=== PATIENT | male | born 1970 | race Caucasian/White ===

== ENCOUNTER 2017-10-27 17:40 | Emergency (ER) | payer BC ==
[2017-10-27] MEDS ORDERED: Metoclopramide IV* 5 MG/ML 2 ML VIAL IV ONE (20:25)
[2017-10-27] MEDS ORDERED: Ketorolac INJ* 30 MG/ML 1 ML VIAL IM ONE (20:25)
[2017-10-27] MEDS ORDERED: NS 0.9% 1000 ML* 1,000 ML IV ONE (20:28)
[2017-10-27] MEDS ORDERED: Morphine VIAL* 4 MG/ML VIAL (1 ml vial) IV ONE (20:28)
--- NOTE | 2017-10-27 20:49 | RAD ---
INDICATION: Left flank pain COMPARISON: CT abdomen pelvis April 17, 2011 TECHNIQUE: Noncontrast axial source images were acquired from the level hemidiaphragms to the symphysis pubis as part of CT imaging for renal stone. Lung bases: The lung bases are clear. Liver: The liver is mildly enlarged with findings of hepatic steatosis. Noncontrast imaging shows no evidence of a hepatic mass or ductal dilatation. Gallbladder: There are no calcified gallstones. There is no evidence of wall thickening or pericholecystic fluid.. Spleen: The spleen is normal in size. The noncontrast CT appearance is normal. Pancreas: Noncontrast imaging shows no pancreatic mass or ductal dilitation. Adrenal glands: There is no right adrenal lesion. There is a stable low-density left adrenal lesion measuring approximately 1 cm appearing unchanged and likely representing an adenoma. Kidneys/Bladder: The right kidney is atrophic with areas of scarring. There is a tiny nonobstructive upper pole right renal calculus. Left kidney is hypertrophied. There is mild process central collecting system but the appearance unchanged. There is no evidence of left-sided nephrolithiasis. The left ureter appears normal. The bladder is normal. Adenopathy: There is no evidence of intraperitoneal or retroperitoneal adenopathy. Evaluation is limited without oral contrast. Fluid collections: There are no free or localized fluid collections. Vessels: The aorta and iliac vessels are normal in caliber. There are no significant atherosclerotic changes. The IVC appears normal Pelvic organs: The prostate and seminal vesicles appear normal GI tract: Evaluation of the bowel is limited without oral contrast. The stomach, small bowel, and lower GI tract appear grossly normal. There are no obstructive findings. The appendix is visualized and appears normal. Soft tissues: No soft tissue abnormalities of the extraperitoneal abdomen or pelvis are identified. Osseous structures: There are no acute osseous findings. IMPRESSION: ATROPHIC RIGHT KIDNEY WITH SEVERAL TINY RIGHT RENAL CALCULI. MILD FULLNESS LEFT RENAL COLLECTING SYSTEM, UNCHANGED. NO EVIDENCE OF LEFT-SIDED UROLITHIASIS.
[2017-10-27 20:55] LABS: ABS Basophils 0.1 10^3/ul (0-0.2); ABS Eosinophils 0 10^3/ul (0-0.6); ABS Lymphocytes 2.3 10^3/ul (1.0-4.8); ABS Monocytes 0.9 10^3/ul (0-0.8); ABS Neutrophils 6.5 10^3/ul (1.5-7.7); ABS Nucleated RBC 0 10^3/ul; Eosinophil % 0.3 % (0-6); Hematocrit 43 % (42-52); Lymphocyte % 23.6 % (25-47); Mean Corpuscular HGB Conc 35 g/dl (31-36); Mean Corpuscular Hemoglobin 31 pg (27-31); Mean Corpuscular Volume 88 fL (80-94); Mean Platelet Volume 9.2 um3 (7.4-10.4); Nucleated Red Blood Cells % 0.1; Platelet Count 181 10^3/ul (150-450); Red Blood Count 4.92 10^6/ul (4.00-5.40); Red Cell Distribution Width 13 % (10.5-15); White Blood Count 9.9 10^3/ul (3.5-10.8)
[2017-10-27 21:03] LABS: Urine Appearance Clear; Urine Blood 1+ (Negative); Urine Color Yellow; Urine Ketones Trace (Negative); Urine Protein Negative (Negative); Urine Specific Gravity 1.011 (1.010-1.030); Urine Urobilinogen Negative (Negative)
[2017-10-27 21:18] LABS: EGFR Non-African American 77.1 (>60)
--- NOTE | 2017-10-27 21:46 | ED ---
Michael Urena Tariq, scribed for Linwood Damian MD on 10/27/17 at 2052 . Abdominal Pain/Male - HPI Summary HPI Summary: A 47 y/o male presents to ED c/o LUQ abdominal pain. According to the patient, the pain intermittent and is 6/10 in severity. He describes the pain has burning pain that radiates to his left flank and sharp/shooting into his back. Additionally symptoms include nausea, however that has resolved. Patient denies fever. He noted that he went to previously and found that there was blood and ketones in his urine. No PMHx of kidney stones. - History of Current Complaint Chief Complaint: EDFlankPain Stated Complaint: LT SIDE AND BACK PAIN Time Seen by Provider: 10/27/17 19:56 Hx Obtained From: Patient Onset/Duration: Sudden Onset, Still Present Timing: Intermittent Severity Initially: Moderate Severity Currently: Moderate Pain Intensity: 5 Pain Scale Used: 0-10 Numeric Location: Discrete At: LUQ Radiates: Yes Radiates to: Back, Flank - LEFT Character: Sharp, Burning Aggravating Factor(s): Nothing Alleviating Factor(s): Nothing Associated Signs And Symptoms: Positive: Nausea - Has resolved since onset. Negative: Fever - Allergies/Home Medications Allergies/Adverse Reactions: Allergies Allergy/AdvReac Type Severity Reaction Status Date / Time Penicillins Allergy Unknown Verified 10/27/17 17:49 Reaction Details Home Medications: Home Medications Aspirin 81 mg CHEW TAB* [Aspirin Low Dose TAB*] 81 mg PO DAILY 10/27/17 [ History Confirmed 10/27/17] Metoprolol Succinate XL TAB* [Toprol XL TAB*] 25 mg PO DAILY 10/27/17 [History Confirmed 10/27/17] Rosuvastatin Calcium [Crestor] 40 mg PO DAILY 10/27/17 [History Confirmed ] PMH/Surg Hx/FS Hx/Imm Hx Endocrine/Hematology History: Denies: Hx Diabetes Cardiovascular History: Denies: Hx Hypertension - Surgical History Surgery Procedure, Year, and Place: ANTERIOR CERVICAL SURGERY WITH PLATE Infectious Disease History: No Infectious Disease History: Denies: Traveled Outside the [place] in Last 30 Days - Family History Known Family History: Positive: Cardiac Disease, Diabetes, Other - BREAST AND LUNG CANCER. A-FIB. - Social History Alcohol Use: Occasionally Substance Use Type: Reports: None Smoking Status (MU): Never Smoked Tobacco Review of Systems Negative: Fever Positive: Abdominal Pain - LUQ, Nausea All Other Systems Reviewed And Are Negative: Yes Physical Exam - Summary Physical Exam Summary: VITAL SIGNS: Reviewed. GENERAL: Patient is a well-developed and nourished MALE who is lying comfortable in the stretcher. Patient is not in any acute respiratory distress. HEAD AND FACE: No signs of trauma. No ecchymosis, hematomas or skull depressions. No sinus tenderness. EYES: PERRLA, EOMI x 2, No injected conjunctiva, no nystagmus. EARS: Hearing grossly intact. Ear canals and tympanic membranes are within normal limits. MOUTH: Oropharynx within normal limits. NECK: Supple, trachea is midline, no adenopathy, no JVD, no carotid bruit, no c- spine tenderness, neck with full ROM. CHEST: Symmetric, no tenderness at palpation LUNGS: Clear to auscultation bilaterally. No wheezing or crackles. CVS: Regular rate and rhythm, S1 and S2 present, no murmurs or gallops appreciated. ABDOMEN: Soft, non-tender. No signs of distention. No rebound no guarding, and no masses palpated. Bowel sounds are normal. EXTREMITIES: FROM in all major joints, no edema, no cyanosis or clubbing. NEURO: Alert and oriented x 3. No acute neurological deficits. Speech is normal and follows commands. SKIN: Dry and warm Triage Information Reviewed: Yes Vital Signs On Initial Exam: Initial Vitals Temp Pulse Resp BP Pulse Ox 98.4 F 72 16 148/105 97 10/27/17 17:46 10/27/17 17:46 10/27/17 17:46 10/27/17 17:46 10/27/17 17:46 Vital Signs Reviewed: Yes Diagnostics - Vital Signs Vital Signs Temp Pulse Resp BP Pulse Ox 10/27/17 17:46 98.4 F 72 16 148/105 97 - Laboratory Result Diagrams: 10/27/17 20:46 10/27/17 20:46 Lab Statement: Any lab studies that have been ordered have been reviewed, and results considered in the medical decision making process. - CT CT A/P CT Interpretation Completed By: Radiologist - ATROPHIC RIGHT KIDNEY WITH SEVERAL TINY RIGHT RENAL CALCULI. MILD FULLNESS LEFT RENAL COLLECTING SYSTEM, UNCHANGED. NO EVIDENCE OF LEFT-SIDED UROLITHIASIS. ED PHYSICIAN REVIEWED THIS RADIOLOGY REPORT. Re-Evaluation - Re-Evaluation First Eval Re-Evaluation Time: 21:36 Change: Improved Comment: PATIENT FEELS BETTER. DISCUSSED DISCHARGE. Abdominal Pain Fem Course/Dx - Course Course Of Treatment: A 47 y/o male presents to ED c/o LUQ abdominal pain. According to the patient, the pain intermittent and is 6/10 in severity. He describes the pain has burning pain that radiates to his left flank and sharp/ shooting into his back. Additionally symptoms include nausea, however that has resolved. Patient denies fever. He noted that he went to previously and found that there was blood and ketones in his urine. A A/P CT revealed atrophic right kidney with several tiny renal calculi. Mild fullness left renal collecting system, unchanged. No evidence of left-sided urolithiasis. In the ED course, the patient received Reglan, Toradol, Morphine and IV fluids. Patient will be discharged with a diagnosis of flank pain and microscopic hematuria. Patient is to follow up with Urology in 1-2 days. Pt is agreeable with this plan. - Diagnoses Provider Diagnoses: Microscopic hematuria, Flank pain Discharge - Sign-Out/Discharge Documenting (check all that apply): Discharge/Admit/Transfer - DISCHARGE - Discharge Plan Condition: Stable Disposition: HOME Patient Education Materials: Hematuria (ED), Flank Pain (ED) Referrals: Camacho Vazquez NP [Primary Care Provider] - Zachariah Vasques MD [Medical Doctor] - 2 Days (FOLLOW UP WITH UROLOGY IN 1-2 DAYS. ) Additional Instructions: RETURN TO ED FOR ANY NEW OR WORSENING SYMPTOMS. The documentation as recorded by the Michale macias Tariq accurately reflects the service I personally performed and the decisions made by me, Linwood Damian MD.
[2017-10-27 21:56] VITALS: BP 125/71
== END 2017-10-27 21:55 | disposition home or self-care (01) ==
LOC: ED 17:40
DX: R31.29 Other microscopic hematuria (principal); R10.84 Generalized abdominal pain; R10.12 Left upper quadrant pain; R11.0 Nausea; Z88.0 Allergy status to penicillin
CPT/HCPCS: 36415; 74176; 80053; 81003; 81015; 82150; 83690; 83735; 85025; 86140; 87086; 99285; J1885; J2270; J2765

== ENCOUNTER 2018-01-11 20:59 | Emergency (ER) | payer BC ==
--- NOTE | 2018-01-11 21:17 | ED ---
HPI Chest Pain - HPI Summary HPI Summary: A 47 y/o M presents to ED with c/o palpitations onset [employer]. Pt states he is detoxing from alcohol. Pert PMHx: alcohol abuse, but hasnt drank in 3 years, but has been drinking for past three days. Hes been drinking vodka. His last drink was this AM. Associated sx: ORELLANA, flushed, nausea, tremulous. Denies: vomiting. Denies using recreational drugs. He takes Metoprolol for afib. Two weeks ago, he had an episode and had cardioversion with medication. He states being healthy and runs every day. - History of Current Complaint Chief Complaint: EDDysrhythmPalp Time Seen by Provider: 01/11/18 21:10 Hx Obtained From: Patient, Family/Supervisor [employer] Department - Onset/Duration: Started Days Ago, Still Present Timing: Constant Initial Severity: Mild Current Severity: Mild Pain Intensity: 0 Pain Scale Used: 0-10 Numeric Associated Signs and Symptoms: Positive: Headaches, Nausea, Other: - pos: flushed, tremulous. Negative: Vomiting - Allergy/Home Medications Allergies/Adverse Reactions: Allergies Allergy/AdvReac Type Severity Reaction Status Date / Time Penicillins Allergy Unknown Verified 01/11/18 21:09 Reaction Details PMH/Surg Hx/FS Hx/Imm Hx Previously Healthy: No Endocrine/Hematology History: Denies: Hx Diabetes Cardiovascular History: Denies: Hx Hypertension Psychiatric History: Reports: Hx Anxiety, Hx Substance Abuse - ETOH - Surgical History Surgery Procedure, Year, and Place: ANTERIOR CERVICAL SURGERY WITH PLATE Infectious Disease History: No Infectious Disease History: Denies: Traveled Outside the [place] in Last 30 Days - Family History Known Family History: Positive: Cardiac Disease, Diabetes, Other - BREAST AND LUNG CANCER. A-FIB. - Social History Occupation: Employed Full-time Lives: With Family Alcohol Use: Occasionally Substance Use Type: Reports: None Smoking Status (MU): Never Smoked Tobacco Review of Systems Positive: Other - tremors, flushed Positive: Palpitations Positive: Nausea. Negative: Vomiting Positive: Headache All Other Systems Reviewed And Are Negative: Yes Physical Exam - Summary Physical Exam Summary: Appearance: Well-appearing, Well-nourished, lying in bed comfortably. Minor tremors. Skin: Warm, dry, no obvious rash. No jaundice. Eyes: sclera anicteric, no conjunctival pallor ENT: mucous membranes moist, pharynx appears normal Neck: Supple, nontender Respiratory: Clear to auscultation, no signs of respiratory distress Cardiovascular: Normal S1, S2. No murmurs. Normal distal pulses in tibial and radial bilaterally. Abdomen: Soft, nontender, normal active bowel sounds present. Liver non-tender nor enlarged. Musculoskeletal: Normal, Strength/ROM Intact Neurological: A&Ox3, awake and alert, mentation is normal, speech is fluent and appropriate Psychiatric: affect is normal, does not appear anxious or depressed Triage Information Reviewed: Yes Vital Signs On Initial Exam: Initial Vitals Temp Pulse Resp BP Pulse Ox 98.4 F 82 16 142/74 99 01/11/18 21:07 01/11/18 21:07 01/11/18 21:07 01/11/18 21:07 01/11/18 21:07 Vital Signs Reviewed: Yes Diagnostics - Vital Signs Vital Signs Temp Pulse Resp BP Pulse Ox 01/11/18 21:07 98.4 F 82 16 142/74 99 - Laboratory Result Diagrams: 01/11/18 21:32 01/11/18 21:32 Lab Statement: Any lab studies that have been ordered have been reviewed, and results considered in the medical decision making process. - EKG 2100 EKG Interpretation: Sinus arrhythmia at 76bpm. No STEMI. Chest Pain Course/Dx - Course Course Of Treatment: A 47 y/o M present with c/o ORELLANA, flushed, nausea, tremors, palpitations. He is detoxing from alcohol, has been drinking for 3 days. Pert PMHx: alcohol abuse, 3 years sober prior. EKG showed sinus arrhythmia at 76bpm , no STEMI. ETOH: 263. The patient's alcohol levels consistent with his clinical history of having been sober and only relapsing over the past 3 days. It also is not consistent with his history of having his last drink this morning. I spoke to him and his about my concerns that he may not be entirely truthful about his drinking history, in particular that he may have relapsing longer than just the past 3 days, and drinking more than he is acknowledging to us. I strongly encouraged him to get some assistance with his drinking problem. I did prescribe a very limited supply of Librium to help with his anxiety and potentially with withdrawal symptoms, and cautioned him about mixing that with alcohol. - Diagnoses Provider Diagnoses: Alcohol abuse Discharge - Sign-Out/Discharge Documenting (check all that apply): Patient Departure - Discharge Plan Prescriptions: [email or web address] CAP* [Librium CAP*] 25 mg PO TID PRN #12 cap MDD 3 tabs PRN Reason: Anxiety Patient Education Materials: Abuse of Alcohol (ED), Alcohol Withdrawal (ED) Referrals: Chelsea Larios MD [Primary Care Provider] - - Attestation Statements Document Initiated by Scribe: Yes Documenting Scribe: Daniel Barragan Provider For Whom Scribe is Documenting (Include Credential): Dr. Mitch Alvarado MD Scribe Attestation: I, Daniel Barragan, scribed for Dr. Mitch Alvarado MD on 01/12/18 at 0010.
[2018-01-11] MEDS ORDERED: chlordiazePOXIDE CAP* 25 MG PO ONE (21:20)
[2018-01-11 21:40] LABS: ABS Basophils 0 10^3/ul (0-0.2); ABS Eosinophils 0 10^3/ul (0-0.6); ABS Lymphocytes 1.6 10^3/ul (1.0-4.8); ABS Monocytes 0.4 10^3/ul (0-0.8); ABS Neutrophils 6.3 10^3/ul (1.5-7.7); ABS Nucleated RBC 0 10^3/ul; Eosinophil % 0.3 % (0-6); Hematocrit 48 % (42-52); Hemoglobin 16.3 g/dl (14.0-18.0); Lymphocyte % 19.3 % (25-47); Mean Corpuscular HGB Conc 34 g/dl (31-36); Mean Corpuscular Hemoglobin 31 pg (27-31); Mean Corpuscular Volume 90 fL (80-94); Mean Platelet Volume 8.5 um3 (7.4-10.4); Nucleated Red Blood Cells % 0.2; Platelet Count 194 10^3/ul (150-450); Red Blood Count 5.34 10^6/ul (4.00-5.40); Red Cell Distribution Width 14 % (10.5-15); White Blood Count 8.4 10^3/ul (3.5-10.8)
[2018-01-11 21:54] LABS: EGFR Non-African American 91.2 (>60)
[2018-01-12 00:16] VITALS: BP 140/79
== END 2018-01-12 00:15 | disposition home or self-care (01) ==
LOC: ED 20:59
DX: F10.10 Alcohol abuse, uncomplicated (principal); R00.2 Palpitations; R51 Headache; R11.0 Nausea; R25.1 Tremor, unspecified; Z88.0 Allergy status to penicillin
CPT/HCPCS: 36415; 80053; 80320; 85025; 93005; 99285; A9270-GY; G0480

== ENCOUNTER 2018-05-14 13:39 | Emergency (ER) | payer BC ==
--- NOTE | 2018-05-14 14:10 | ED ---
HPI Cardiac - HPI Summary HPI Summary: Pateint is a 48 y/o M presenting to ED with complaints of chest pounding/ fluttering and chest discomfort since this morning. He is unsure if chest pain is related to GERD or something else. Patient is on metoprolol, Crestor, baby ASA. He took his medications this morning. Hx of hypomagnesemia. Patient notes that he drank "quite a bit of alcohol" last night. In the room, he states, "It feels like I am having withdrawal from the alcohol." Hx of alcohol withdrawal, states that he stopped drinking 2.5 years ago, started drinking again in the fall of this year. Patient denies having consumed alcohol today. He states he had a whole bottle of vodka last night. Patient states that he has not had seizures from withdrawal, states his typical withdrawal Sx are afib and tremors. In room, patient is not tremulous. He does note that he is currently nauseous. PSHx of cervical spinal fusion at C5. On triage, pain is rated 5/10, nothing is noted to aggravate/alleviate Sx. Home medications and allergies are reviewed. BP of 172/107 on triage is noted. Allergies Allergy/AdvReac Type Severity Reaction Status Date / Time Penicillins Allergy Unknown Verified 02/05/18 08:12 Reaction Details Home Medications Aspirin EC TAB* [Ecotrin EC Low Dose 81 MG*] 81 mg PO DAILY 05/14/18 [History Confirmed 05/14/18] Ezetimibe TAB* [Zetia TAB*] 10 mg PO DAILY 05/14/18 [History Confirmed 05/14/18] Omeprazole CAP (NF) [Prilosec CAP* 20 MG] 20 mg PO DAILY 05/14/18 [History Confirmed 05/14/18] Rosuvastatin (NF) [Crestor (NF)] 40 mg PO DAILY 05/14/18 [History Confirmed ] Zolpidem TAB* [Ambien*] 10 mg PO BEDTIME PRN 05/14/18 [History Confirmed ] - History of Current Complaint Chief Complaint: EDDysrhythmPalp Stated Complaint: CHEST PAIN Time Seen by Provider: 05/14/18 13:59 Hx Obtained From: Patient Onset/Duration: Started Hours Ago, Still Present Timing: Constant, Lasting Hours Initial Severity: Moderate Current Severity: Moderate - 5/10 Pain Intensity: 5 Pain Scale Used: 0-10 Numeric - 5/10 Chest Pain Location: Left Anterior Chest Pain Radiates: No Character: Fluttering, Other: - pounding Aggravating Factor(s): Nothing Alleviating Factor(s): Nothing Associated Signs and Symptoms: Positive: Chest Pain, Nausea, Palpitations, Other : - NEGATIVE - TREMORS - Allergy/Home Medications Allergies/Adverse Reactions: Allergies Allergy/AdvReac Type Severity Reaction Status Date / Time Penicillins Allergy Unknown Verified 02/05/18 08:12 Reaction Details Home Medications: Home Medications Aspirin EC TAB* [Ecotrin EC Low Dose 81 MG*] 81 mg PO DAILY 05/14/18 [History Confirmed 05/14/18] Ezetimibe TAB* [Zetia TAB*] 10 mg PO DAILY 05/14/18 [History Confirmed 05/14/18] Omeprazole CAP (NF) [Prilosec CAP* 20 MG] 20 mg PO DAILY 05/14/18 [History Confirmed 05/14/18] Rosuvastatin (NF) [Crestor (NF)] 40 mg PO DAILY 05/14/18 [History Confirmed ] Zolpidem TAB* [Ambien*] 10 mg PO BEDTIME PRN 05/14/18 [History Confirmed ] PMH/Surg Hx/FS Hx/Imm Hx Previously Healthy: No Endocrine/Hematology History: Denies: Hx Diabetes Cardiovascular History: Reports: Hx Atrial Fibrillation, Hx Hypercholesterolemia , Hx Hypertension Denies: Hx Angina Respiratory History: Denies: Hx Asthma Neurological History: Reports: Other Neuro Impairments/Disorders - hx alcohol withdrawal Psychiatric History: Reports: Hx Anxiety, Hx Substance Abuse - ETOH - Surgical History Surgery Procedure, Year, and Place: ANTERIOR CERVICAL SURGERY WITH PLATE Infectious Disease History: No Infectious Disease History: Denies: Traveled Outside the [place] in Last 30 Days - Family History Known Family History: Positive: Cardiac Disease, Diabetes, Other - BREAST AND LUNG CANCER. A-FIB. - Social History Occupation: Employed Full-time Lives: With Family Alcohol Use: hx alcohol abuse, binge drinking last PM, started drinking again fall 2017, after 2.5 yrs abstinence Substance Use Type: Reports: None Smoking Status (MU): Never Smoked Tobacco Review of Systems Positive: Other - NEGATIVE - TREMORS Positive: Palpitations, Chest Pain Respiratory: Negative Positive: Nausea Positive: no symptoms reported Musculoskeletal: Negative Skin: Negative Neurological: Negative Psychological: Normal All Other Systems Reviewed And Are Negative: Yes Physical Exam - Summary Physical Exam Summary: Appearance: Well-appearing, moderate pain distress, well-nourished Skin: Warm, color reflects adequate perfusion, dry Head: Normal Head/Face inspection, atraumatic Eyes: Conjunctiva clear, PERRL EOMI ENT: Normal inspection Neck: Supple, no nodes, no JVD Respiratory: Lungs clear, normal breath sounds, no respiratory distress Cardio: RRR, No murmur, pulses normal, brisk capillary refill Abdomen: Soft, nontender Bowel sounds: Present Musculoskeletal: Strength Intact/ROM intact, no calf tenderness, no edema. Psychological: Normal Neuro: A&O x3, CN II-XII intact, motor function 5/5, sensation intact, cerebellar normal, no tremors Triage Information Reviewed: Yes Vital Signs On Initial Exam: Initial Vitals Temp Pulse Resp BP Pulse Ox 97.2 F 89 16 172/107 96 05/14/18 13:42 05/14/18 13:42 05/14/18 13:42 05/14/18 13:42 05/14/18 13:42 Vital Signs Reviewed: Yes Diagnostics - Vital Signs Vital Signs Temp Pulse Resp BP Pulse Ox 05/14/18 13:42 97.2 F 89 16 172/107 96 - Laboratory Result Diagrams: 05/14/18 13:20 05/14/18 13:20 Lab Statement: Any lab studies that have been ordered have been reviewed, and results considered in the medical decision making process. - Radiology CXR Radiology Interpretation Completed By: Radiologist Summary of Radiographic Findings: IMPRESSION: NO ACTIVE CARDIOPULMONARY DISEASE. THIS REPORT WAS REVIEWED BY ED PHYSICIAN. - EKG 1344 Cardiac Rate: NL - rate of 88 BPM EKG Rhythm: Sinus Rhythm ST Segment: Non-Specific Ectopy: None EKG Comparison: No Significant Change - compared to 01/11/18 Summary of EKG Findings: An EKG at 1344 reveals sinus rhythm with rate of 88 BPM , nml AV/IV CT, nml QTc, and nml axis. No ectopy, non-specific ST. No acute changes. No significant changes compared to 01/11/18. Re-Evaluation - Re-Evaluation First Eval Re-Evaluation Time: 18:04 Change: Unchanged Comment: BP is 162/84. He notes that this is high for him. Patient is on metoprolol, he took medications this morning as usual. He notes some "stomach issues" at left side of abdomen. No discomfort at RUQ. He reports some nausea, he claims that he has not eaten in a couple of days. Patient provided turkey sandwich. PCP is Dr. Larios. Patient requests Librium before discharge, which will be given. No HI, no SI. No Hx of diabetes. Patient states that he went to [facility] yesterday, did the intake over there, will go there in five days once more , has an appointment with them. No other substance usage is reported. Disposition - Course Course Of Treatment: Pateint is a 48 y/o M presenting to ED with complaints of chest pounding/fluttering and chest discomfort since this morning. He is unsure if chest pain is related to GERD or something else. Patient is on metoprolol, Crestor, baby ASA. He took his medications this morning. Hx of hypomagnesemia. Patient notes that he drank "quite a bit of alcohol" last night. In the room, he states, "It feels like I am having withdrawal from the alcohol." Hx of alcohol withdrawal, states that he stopped drinking 2.5 years ago, started drinking again in the fall of 2017. Patient denies having consumed alcohol today. He states he had a whole bottle of vodka last night. Patient states that he has not had seizures from withdrawal, states his typical withdrawl Sx would are afib and tremors. In room, patient is not tremulous. He does note that he is currently nauseous. PSHx of cervical spinal fusion at C5. On physical exam, patient is noted not to be tremulous. CXR IMPRESSION: NO ACTIVE CARDIOPULMONARY DISEASE. An EKG at 1344 reveals sinus rhythm with rate of 88 BPM, nml AV/IV CT, nml QTc, and nml axis. No ectopy, non-specific ST. No acute changes. No significant changes compared to 01/11/18. Labs showed D-dimer < 200 , sodium 132, chloride 98, carbon dioxide 19, anion gap 15, BUN/creatinine 21.1 , magnesium 1.6, lactic acid 0.7, total bilirubin 1.8, AST 40, total creatine kinase 295, CK-MB 3.7. First trop was 0, second was 0.01. Amylase 39, lipase 13 , TSH 3.41, T4 11.13. UA showed 2+ ketones, 1+ blood, present squamous epith cells. Tox screen negative.Pt does not recall being told that he has Gilbert's syndrome. Denies RUQ pain entirely, despite recent binge alcohol and elevated bilirubin, so will not pursue gallbladder work up at this time. 1804 - BP is 162/84. He notes that this is high for him. Patient is on metoprolol, he took medications this morning as usual. He notes some "stomach issues" at left side of abdomen. No discomfort at RUQ. He reports some nausea, he claims that he has not eaten in a couple of days. Patient provided turkey sandwich. PCP is Dr. Larios. Patient requests Librium before discharge, which will be given. No HI, no SI. No Hx of diabetes. Patient states that he went to [facility] yesterday, did the intake over there, will go there in five days once more for the appointment he set up. No other substance usage is reported. Patient is agreeable with discharge to home with librium prescription. During ED course, patient received fluids, Lopressor 25 mg PO ED ONCE, Magnesium sulfate 1 Gm IV, 1 gm in 100 mls @ 200 mls/hr IV ED ONCE ONCE. - Differential Dx - Cardiopulmonary Differential Diagnoses - Cardiopulmonary: Atrial Fibrillation, Bronchitis, CAD, Cardiomyopathy, Chest Wall Pain, Lower Resp Infection, Myocardial Infarction, Other - alcohol withdrawal. - Diagnoses Provider Diagnoses: Palpitations, Hypertension, poor control, Elevated bilirubin, Alcohol withdrawal Discharge - Sign-Out/Discharge Documenting (check all that apply): Patient Departure - discharge - Discharge Plan Condition: Stable Disposition: HOME Prescriptions: chlordiazePOXIDE CAP* [Librium CAP*] 25 mg PO Q6H PRN #20 cap MDD 4 PRN Reason: Withdrawal - Alcohol Patient Education Materials: Heart Palpitations (ED), Chronic Hypertension (ED) , Alcohol Withdrawal (ED) Referrals: Chelsea Larios MD [Primary Care Provider] - 2 Days Additional Instructions: Your bilirubin was elevated today at 1.8, and your AST was 40 (normal is 39). You had no right upper quadrant pain or gallbladder type symptoms, so we did not do any further evaluation of your liver function tests at this time. Dr. Aranda agrees that you should hold your Crestor until your liver function tests are re-checked. We gave one dose of metoprolol tartrate 25mg at 6:15pm for elevated blood pressure. We are prescribing librium 25mg every six hours as needed for alcohol withdrawal symptoms, or anxiety. Have definite follow up with Dr. Larios in 2 days. Keep your appointment with [facility] on 05/19/18. Avoid alcohol. We had two troponin levels that were normal so we do not feel the palpitations were due to any serious cardiac cause today. Return to the ER if you have any new or worsening symptoms. - Billing Disposition and Condition Condition: STABLE Disposition: Home - Attestation Statements Document Initiated by Jesica: Yes Documenting Scribe: DONNELL CIFUENTES Provider For Whom Jesica is Documenting (Include Credential): VICTORINA ARANDA MD Scribe Attestation: DONNELL Urena, scribed for VICTORINA ARANDA MD on 05/19/18 at 0010. Scribe Documentation Reviewed: Yes Provider Attestation: The documentation as recorded by the DONNELL macias accurately reflects the service I personally performed and the decisions made by me, VICTORINA ARANDA MD Status of Scribe Document: Viewed
[2018-05-14 14:24] LABS: ABS Basophils 0 10^3/ul (0-0.2); ABS Eosinophils 0 10^3/ul (0-0.6); ABS Lymphocytes 1.3 10^3/ul (1.0-4.8); ABS Monocytes 0.7 10^3/ul (0-0.8); ABS Neutrophils 7.2 10^3/ul (1.5-7.7); ABS Nucleated RBC 0 10^3/ul; Eosinophil % 0 %; Hematocrit 43 % (42-52); Hemoglobin 14.9 g/dl (14.0-18.0); Lymphocyte % 14.4 %; Mean Corpuscular HGB Conc 35 g/dl (31-36); Mean Corpuscular Hemoglobin 31 pg (27-31); Mean Corpuscular Volume 89 fL (80-94); Mean Platelet Volume 8.2 fL (7.4-10.4); Nucleated Red Blood Cells % 0.1; Platelet Count 196 10^3/ul (150-450); Red Cell Distribution Width 14 % (10.5-15); White Blood Count 9.3 10^3/ul (3.5-10.8)
[2018-05-14 14:33] LABS: Activated Partial Thrombo Time 29.2 seconds (26.0-36.3); INR 0.99 (0.77-1.02)
[2018-05-14 14:44] LABS: ALT 38 U/L (7-52); AST 40 U/L (13-39); Albumin 4.4 g/dL (3.2-5.2); Albumin/Globulin Ratio 1.3 (1-3); Alkaline Phosphatase 61 U/L (34-104); Anion Gap 15 mmol/L (2-11); BUN/Creatinine Ratio 21.1 (8-20); Blood Urea Nitrogen 20 mg/dL (6-24); CO2 Carbon Dioxide 19 mmol/L (22-32); Calcium 9.1 mg/dL (8.6-10.3); Chloride 98 mmol/L (101-111); Creatine Kinase 295 U/L (10-223); EGFR Non-African American 84.3 (>60); Globulin 3.3 g/dL (2-4); Glucose 88 mg/dL (70-100); Magnesium 1.6 mg/dL (1.9-2.7); Potassium 3.8 mmol/L (3.5-5.0); Sodium 132 mmol/L (135-145); Total Protein 7.7 g/dL (6.4-8.9)
[2018-05-14 14:48] LABS: CKMB ng/mL 3.7 ng/mL (0.6-6.3)
[2018-05-14] MEDS ORDERED: Magnesium Sulfate 1 GM IV* 1 GM/100 ML BAG IV ONE (14:48)
[2018-05-14] MEDS ORDERED: NS 0.9% 1000 ML* 2,000 ML IV SCH (15:00)
[2018-05-14 15:14] LABS: Amylase 39 U/L (29-103)
[2018-05-14] MEDS ORDERED: NS 0.9% 1000 ML* 2,000 ML IV ONE (16:00)
[2018-05-14 16:02] LABS: Alcohol < 10 mg/dL (<10)
[2018-05-14 16:04] LABS: T4, Total 11.13 g/dL (6.09-12.23)
[2018-05-14 16:08] LABS: TSH (Thyroid Stimulating Horm) 3.41 mcIU/mL (0.34-5.60)
[2018-05-14] MEDS ORDERED: chlordiazePOXIDE CAP* 25 MG PO ONE (18:08)
[2018-05-14] MEDS ORDERED: Metoprolol Tartrate TAB* 25 MG PO ONE (18:10)
[2018-05-14 18:46] LABS: Urine Appearance Clear; Urine Bacteria Absent (Absent); Urine Bilirubin Negative (Negative); Urine Blood 1+ (Negative); Urine Color Yellow; Urine Glucose Negative (Negative); Urine Ketones 2+ (Negative); Urine Nitrite Negative (Negative); Urine Protein Negative (Negative); Urine Red Blood Cell Trace(0-2/hpf) (Absent); Urine Specific Gravity 1.014 (1.010-1.030); Urine Squamous Epithelial Cell Present (Absent); Urine Urobilinogen Negative (Negative); Urine White Blood Cell Trace(0-5/hpf) (Absent)
[2018-05-14 18:47] LABS: Barbiturates Urine Screen None Detected (None Detect); Benzodiazepine Urine Screen None Detected (None Detect); Urine Cannabinoids Screen None Detected (None Detect)
[2018-05-14 19:18] VITALS: BP 159/87
== END 2018-05-14 19:26 | disposition home or self-care (01) ==
LOC: ED 13:39
DX: R00.2 Palpitations (principal); I10 Essential (primary) hypertension; E80.7 Disorder of bilirubin metabolism, unspecified; F10.239 Alcohol dependence with withdrawal, unspecified; Z88.0 Allergy status to penicillin; Z79.82 Long term (current) use of aspirin
CPT/HCPCS: 36415; 71045; 80053; 80307; 80320; 81003; 81015; 82150; 82550; 82553; 83605; 83690; 83735; 83880; 84436; 84443; 84484; 85025; 85379; 85610; 85730; 87086; 93005; 96361; 96374; 96375; 99282; A9270-GY; G0480; J3475

== ENCOUNTER 2019-01-11 09:04 | Emergency (ER) | payer BC ==
--- OUTSIDE RECORDS SUMMARY | 2019-01-11 09:17 | XMS REPORT | Continuity of Care Document ---
:1970 External Reference #:[id number] Author Name Alena Marianne Care Team Providers Name Role Phone Chelsea Larios MD Primary Care Physician Unavailable Payers Date Identification Numbers Payment Provider Subscriber Policy Number: [id number] [facility] [facility] Sandra Cheema PayID: [id number] [address] [place] [address] Problems Active Problems Provider Date Paroxysmal atrial fibrillation Camacho Vazquez NP Onset: 01/28/2017 Hyperlipidemia Camacho Vazquez NP Onset: 01/28/2017 Family History Date Family Member(s) Observation Comments General Cancer General Heart Disease : (age 68 Father due to Stroke Years) Father due to Arrhythmia () Onset: (age 78 Mother Lung Cancer smoker, alive 10/2017 Years) Mother Aortic Aneurysm abdominal rupture and repair Siblings 2 Social History Type Date Description Comments Sex Unknown Marital Status Occupation [employer] Use Denies alcohol use Had problem with alcohol, stopped drinking in 2015.In-patient Detox in 2015. Relapse in 2017. CARS in 2018 Tobacco Use Start: Unknown Patient has never smoked Recreational Drug Use Never Used Drugs Smoking Status Reviewed: 11/26/18 Patient has never smoked Exercise Type/Frequency Exercises regularly Allergies, Adverse Reactions, Alerts Active Allergies Reaction Severity Comments Date Penicillin 01/23/2017 Medications Active Medications SIG Qnty Indications Ordering Provider Date Zetia 1 by mouth every 90tabs Jamarcus Mcguire 02/02/2018 10mg Tablets day Renae Paige Magnesium [place] Chelsea Larios, 12/18/2017 Renae Metoprolol Succinate take 1 tablet 90tabs I48.0 Chelsea Larios, 2017 ER daily Renae 25mg Tablets ER 24HR Crestor take 1 tablet 90tabs Jamarcus Mcguire 06/09/2017 40mg Tablets daily Renae Paige Ambien 1 tab by mouth 30tabs [facility] Ric 02/21/2017 10mg Tablets daily as needed Renae Aspirin 1 by mouth every Unknown 81mg Tablets DR dos santos Effexor XR 1 by mouth every Unknown 75mg Caps ER day 24HR History Medications Azithromycin 2 tabs by mouth on 6tabs . [facility] 04/06/2018 - 250mg day 1; 1 tab by Renae Larios 04/10/2018 Tablets mouth every day on days 2-5 Guaifenesin-Codeine 5-10 milliliters 120ml . [facility] 04/06/2018 - every 6 hours as Renae Larios 04/13/2018 100-10mg/5ML needed Solution Magnesium Sulfate 2 grams iv 2gm Jamarcus Mcguire 02/03/2018 - Renae Paige 10/27/2018 2GM/50ML Solution Slow-Mag 1 PO qd (not 30tabs [facility] 02/02/2018 - 71.5-119mg taking) Renae Larios 10/27/2018 Tablets Magnesium Oxide 1 PO qd Pt states [facility] 11/02/2017 - 250mg is not currently Renae Larios 12/18/2017 Tablets taking, instead using magnesium spray. Omeprazole 1 by mouth every 30caps K21.9 [facility] 10/30/2017 - 40mg day (not taking) Renae Larios 10/27/2018 Capsules Zolpidem Tartrate take 1 tablet by 30tabs Camacho Vazquez NP 01/23/2017 - mouth at bedtime 01/23/2017 10mg Tablets Metoprolol Succinate 1 by mouth every 90tabs I48.0 Camacho Vazquez NP - ER day 06/09/2017 25mg Tablets ER 24HR Crestor 1 by mouth every 90tabs Camacho Vazquez NP - 40mg Tablets day 06/09/2017 Ambien as needed Unknown - 02/21/2017 Benzonatate take one or two Unknown - 100mg capsules every 8 04/21/2018 Capsules hours as needed for cough. Proair HFA inhale 1 to 2 Unknown - puffs by mouth 10/27/2018 108(90Base) mcg/Act every 4 hours if Aerosol needed for wheezing Immunizations CPT Code Status Date Vaccine Lot # [id number] Given 01/23/2017 Influenza Virus Vaccine, Quadrivalent, Split, [id number] Preservative Free Vital Signs Date Vital Result Comment 11/26/2018 8:58am Height 71 inches 5'11" Weight 266.25 lb Heart Rate 81 /min BP Systolic Sitting 118 mmHg BP Diastolic Sitting 80 mmHg Respiratory Rate 16 /min BMI (Body Mass Index) 37.1 kg/m2 10/28/2018 7:36am Height 71 inches 5'11" Weight 260.00 lb Heart Rate 64 /min BP Systolic Sitting 110 mmHg Lue large cuff BP Diastolic Sitting 76 mmHg Lue large cuff Respiratory Rate 12 /min O2 % BldC Oximetry 97 % BMI (Body Mass Index) 36.3 kg/m2 Neck Circumference in inches 17.25 09/18/2018 4:02pm Height 71 inches 5'11" Weight 261.00 lb Heart Rate 72 /min BP Systolic Sitting 143 mmHg BP Diastolic Sitting 98 mmHg Body Temperature 97.5 F O2 % BldC Oximetry 96 % BMI (Body Mass Index) 36.4 kg/m2 07/02/2018 7:42am Height 71 inches 5'11" Weight 267.00 lb Heart Rate 75 /min BP Systolic 118 mmHg BP Diastolic 79 mmHg Body Temperature 96.9 F O2 % BldC Oximetry 96 % BMI (Body Mass Index) 37.2 kg/m2 04/06/2018 4:06pm Height 71 inches 5'11" Weight 250.00 lb Heart Rate 75 /min BP Systolic Sitting 110 mmHg BP Diastolic Sitting 80 mmHg Body Temperature 98.0 F O2 % BldC Oximetry 97 % BMI (Body Mass Index) 34.9 kg/m2 12/18/2017 8:39am Height 71 inches 5'11" Weight 255.00 lb Heart Rate 77 /min BP Systolic 109 mmHg BP Diastolic 71 mmHg Body Temperature 97.0 F O2 % BldC Oximetry 97 % BMI (Body Mass Index) 35.6 kg/m2 11/17/2017 9:23am Height 71 inches 5'11" Weight 259.25 lb w/shoes Heart Rate 74 /min BP Systolic Sitting 108 mmHg Lue lg cuff BP Diastolic Sitting 70 mmHg Lue lg cuff BMI (Body Mass Index) 36.2 kg/m2 10/30/2017 8:33am Height 71 inches 5'11" Weight 262.00 lb Heart Rate 66 /min BP Systolic Sitting 134 mmHg BP Diastolic Sitting 93 mmHg O2 % BldC Oximetry 97 % BMI (Body Mass Index) 36.5 kg/m2 01/24/2017 2:54pm Height 71 inches 5'11" Weight 262.00 lb BP Systolic 122 mmHg BP Diastolic 81 mmHg Respiratory Rate 16 /min Body Temperature 97.7 F Pain Level 6 BMI (Body Mass Index) 36.5 kg/m2 01/23/2017 10:49am Height 71 inches 5'11" Weight 262.00 lb Heart Rate 68 /min BP Systolic Sitting 114 mmHg BP Diastolic Sitting 78 mmHg O2 % BldC Oximetry 98 % BMI (Body Mass Index) 36.5 kg/m2 Results Test Date Facility Test Result H/L Range Note CBC Auto 09/18/2018 [facility] White Blood 4.9 10^3/uL Normal 3.5-10.[address] [place] [address] [phone] Red Blood Count 4.58 10^6/uL Normal 4.18-5.48 Hemoglobin 14.4 g/dL Normal 14.0-18.0 Hematocrit 42 % Normal 42-52 Mean Corpuscular Volume 92 fL Normal 80-94 Mean Corpuscular Hemoglobin 31 pg Normal 27-31 Mean Corpuscular HGB Conc 34 g/dL Normal 31-36 Red Cell Distribution Width 14 % Normal 10.5-15 Platelet Count 168 10^3/uL Normal 150-450 Mean Platelet Volume 9.5 fL Normal 7.4-10.4 Abs Neutrophils 3.3 10^3/uL Normal 1.5-7.7 Abs Lymphocytes 1.2 10^3/uL Normal 1.0-4.8 Abs Monocytes 0.4 10^3/uL Normal 0-0.8 Abs Eosinophils 0.1 10^3/uL Normal 0-0.6 Abs Basophils 0.0 10^3/uL Normal 0-0.2 Abs Nucleated RBC 0.0 10^3/uL Granulocyte % 66.2 % Lymphocyte % 23.4 % Monocyte % 8.8 % Eosinophil % 1.2 % Basophil % 0.4 % Nucleated Red Blood Cells % 0.7 Comp Metabolic 09/18/2018 [facility] Sodium 139 mmol/L Normal 135-[address] [place] [address] [phone] Potassium 3.6 mmol/L Normal 3.5-5.0 Chloride 107 mmol/L Normal 101-111 Co2 Carbon Dioxide 26 mmol/L Normal 22-32 Anion Gap 6 mmol/L Normal 2-11 Glucose 112 mg/dL High 70-100 Blood Urea Nitrogen 16 mg/dL Normal 6-24 Creatinine 1.04 mg/dL Normal 0.67-1.17 BUN/Creatinine Ratio 15.4 Normal 8-20 Calcium 9.1 mg/dL Normal 8.6-10.3 Total Protein 7.2 g/dL Normal 6.4-8.9 Albumin 4.4 g/dL Normal 3.2-5.2 Globulin 2.8 g/dL Normal 2-4 Albumin/Globulin Ratio 1.6 Normal 1-3 Total Bilirubin 0.80 mg/dL Normal 0.2-1.0 Alkaline Phosphatase 54 U/L Normal 34-104 Alt 46 U/L Normal 7-52 Ast 35 U/L Normal 13-39 Egfr Non- 75.9 >60 Egfr 91.8 >60 1 Laboratory 09/18/2018 [facility] Lipase 43 U/L Normal 11.0- 82.[address] [place], [place] [id number] [phone] Urine Drug 05/14/2018 [facility] Amphetamine Ur None None Detect SCR ED & Pain [address] [place] [address] [phone] Barbiturates Urine Screen None Detected None Detect Benzodiazepine Urine Screen None Detected None Detect Urine Cannabinoids Screen None Detected None Detect Urine Cocaine Screen None Detected None Detect Urine Opiates Screen None Detected None Detect Urine Phencyclidine Screen None Detected None Detect 2 Urine Culture And 05/14/2018 [facility] Urine Culture SEE RESULT [address] [place] [address] [phone] Urinalysis Profile 05/14/2018 [facility] Urine Color Yellow [address] [place] [address] [phone] Urine Appearance Clear Urine Specific [place] 1.014 Normal 1.010-1.030 Urine pH 5.0 Normal 5-9 Urine Urobilinogen Negative Negative Urine Ketones 2+ Abnormal Negative Urine Protein Negative Negative Urine Leukocytes Negative Negative Urine Blood 1+ Abnormal Negative Urine Nitrite Negative Negative Urine Bilirubin Negative Negative Urine Glucose Negative Negative Urine White Blood Cell Trace(0-5/hpf) Absent Urine Red Blood Cell Trace(0-2/hpf) Absent Urine Bacteria Absent Absent Urine Squamous Epithelial Cell Present Abnormal Absent Laboratory test 05/14/2018 [facility] Amylase 39 U/L Normal 29 -103 [place] [address] [phone] Lipase 13 U/L Normal 11.0-82.0 Alcohol < 10 mg/dL Normal <10 Thyroxine 11.13 ?g/dL Normal 6.09-12.23 TSH (Thyroid Stim Horm) 3.41 mcIU/mL Normal 0.34-5.60 CKMB 05/14/2018 [facility] CKMB ng/mL 3.7 ng/mL Normal 0.6- 6.3 [place] [address] [phone] Laboratory test 05/14/2018 [facility] Troponin-I 0.01 ng/mL < 0.04 4 finding (TnI) [place] [address] [phone] Inr/Protime 05/14/2018 [facility] Inr 0.99 Normal 0.77-1.02 [place], [place] [id number] [phone] Laboratory test 05/14/2018 [facility] Partial 29.2 Normal 26.0 -36.3 [place] [address] Time PTT [phone] D Dimer Quantitative < 200 ng/mL Normal Less Than 230 5 Laboratory test 05/14/2018 [facility] Magnesium 1.6 mg/dL Low 1.9-2.7 finding [place], [place] [id number] [phone] Creatine Kinase(CK) 295 U/L High 10-223 Troponin-I (TnI) 0.00 ng/mL <0.04 6 Comp Metabolic Panel 05/14/2018 [facility] Sodium 132 mmol/L Low 135-145 [place] [address] [phone] Potassium 3.8 mmol/L Normal 3.5-5.0 Chloride 98 mmol/L Low 101-111 Co2 Carbon Dioxide 19 mmol/L Low 22-32 Anion Gap 15 mmol/L High 2-11 Glucose 88 mg/dL Normal 70-100 Blood Urea Nitrogen 20 mg/dL Normal 6-24 Creatinine 0.95 mg/dL Normal 0.67-1.17 BUN/Creatinine Ratio 21.1 High 8-20 Calcium 9.1 mg/dL Normal 8.6-10.3 Total Protein 7.7 g/dL Normal 6.4-8.9 Albumin 4.4 g/dL Normal 3.2-5.2 Globulin 3.3 g/dL Normal 2-4 Albumin/Globulin Ratio 1.3 Normal 1-3 Total Bilirubin 1.80 mg/dL High 0.2-1.0 Alkaline Phosphatase 61 U/L Normal 34-104 Alt 38 U/L Normal 7-52 Ast 40 U/L High 13-39 Egfr Non- 84.3 >60 Egfr 102.0 >60 7 CBC Auto 05/14/2018 [facility] White Blood 9.3 10^3/uL Normal 3.5-10.[address] [place] [address] [phone] Red Blood Count 4.80 10^6/uL Normal 4.00-5.40 Hemoglobin 14.9 g/dL Normal 14.0-18.0 Hematocrit 43 % Normal 42-52 Mean Corpuscular Volume 89 fL Normal 80-94 Mean Corpuscular Hemoglobin 31 pg Normal 27-31 Mean Corpuscular HGB Conc 35 g/dL Normal 31-36 Red Cell Distribution Width 14 % Normal 10.5-15 Platelet Count 196 10^3/uL Normal 150-450 Mean Platelet Volume 8.2 fL Normal 7.4-10.4 Abs Neutrophils 7.2 10^3/uL Normal 1.5-7.7 Abs Lymphocytes 1.3 10^3/uL Normal 1.0-4.8 Abs Monocytes 0.7 10^3/uL Normal 0-0.8 Abs Eosinophils 0 10^3/uL Normal 0-0.6 Abs Basophils 0 10^3/uL Normal 0-0.2 Abs Nucleated RBC 0 10^3/uL Granulocyte % 77.7 % Lymphocyte % 14.4 % Monocyte % 7.6 % Eosinophil % 0 % Basophil % 0.3 % Nucleated Red Blood Cells % 0.1 Laboratory test 05/14/2018 [facility] Lactic Acid 0.7 mmol/L Normal 0.5-2.[address] [place] [address] [phone] B-Type Natriuretic Peptide BNP 14 pg/mL <=100 Laboratory test 01/30/2018 [facility] Magnesium 1.7 mg/dL Low 1.9-2.[address] [place] [address] [phone] Lipid Panel - 01/30/2018 [facility] Creatine 82 U/L Normal 10- [address] Kinase(CK) [place] [address] [phone] Comp Metabolic 01/30/2018 [facility] Sodium 138 Normal 135- [address] mmol/[place] [address] [phone] Potassium 4.4 mmol/L Normal 3.5-5.0 Chloride 103 mmol/L Normal 101-111 Co2 Carbon Dioxide 25 mmol/L Normal 22-32 Anion Gap 10 mmol/L Normal 2-11 Glucose 101 mg/dL High 70-100 Blood Urea Nitrogen 18 mg/dL Normal 6-24 Creatinine 1.15 mg/dL Normal 0.67-1.17 BUN/Creatinine Ratio 15.7 Normal 8-20 Calcium 10.0 mg/dL Normal 8.6-10.3 Total Protein 7.2 g/dL Normal 6.4-8.9 Albumin 4.6 g/dL Normal 3.2-5.2 Globulin 2.6 g/dL Normal 2-4 Albumin/Globulin Ratio 1.8 Normal 1-3 Total Bilirubin 0.90 mg/dL Normal 0.2-1.0 Alkaline Phosphatase 68 U/L Normal 34-104 Alt 41 U/L Normal 7-52 Ast 30 U/L Normal 13-39 Egfr Non- 67.9 >60 Egfr 82.1 >60 9 Lipid Profile 01/30/2018 [facility] Triglycerides 69 mg/dL 10 (Trig/Chol/HDL) [address] [place] [address] [phone] Cholesterol 202 mg/dL 11 HDL Cholesterol 51.9 mg/dL 12 LDL Cholesterol 136 mg/dL 13 CBC Auto 01/11/2018 [facility] White Blood 8.4 10^3/uL Normal 3.5-10.[address] [place] [address] [phone] Red Blood Count 5.34 10^6/uL Normal 4.00-5.40 Hemoglobin 16.3 g/dL Normal 14.0-18.0 Hematocrit 48 % Normal 42-52 Mean Corpuscular Volume 90 fL Normal 80-94 Mean Corpuscular Hemoglobin 31 pg Normal 27-31 Mean Corpuscular HGB Conc 34 g/dL Normal 31-36 Red Cell Distribution Width 14 % Normal 10.5-15 Platelet Count 194 10^3/uL Normal 150-450 Mean Platelet Volume 8.5 um3 Normal 7.4-10.4 Abs Neutrophils 6.3 10^3/uL Normal 1.5-7.7 Abs Lymphocytes 1.6 10^3/uL Normal 1.0-4.8 Abs Monocytes 0.4 10^3/uL Normal 0-0.8 Abs Eosinophils 0 10^3/uL Normal 0-0.6 Abs Basophils 0 10^3/uL Normal 0-0.2 Abs Nucleated RBC 0 10^3/uL Granulocyte % 75.4 % Normal 38-83 Lymphocyte % 19.3 % Low 25-47 Monocyte % 4.8 % Normal 0-7 Eosinophil % 0.3 % Normal 0-6 Basophil % 0.2 % Normal 0-2 Nucleated Red Blood Cells % 0.2 Comp Metabolic 01/11/2018 [facility] Sodium 141 mmol/L Normal 135-[address] [place] [address] [phone] Potassium 3.9 mmol/L Normal 3.5-5.0 Chloride 102 mmol/L Normal 101-111 Co2 Carbon Dioxide 20 mmol/L Low 22-32 Anion Gap 19 mmol/L High 2-11 Glucose 76 mg/dL Normal 70-100 Blood Urea Nitrogen 16 mg/dL Normal 6-24 Creatinine 0.89 mg/dL Normal 0.67-1.17 BUN/Creatinine Ratio 18.0 Normal 8-20 Calcium 9.1 mg/dL Normal 8.6-10.3 Total Protein 7.7 g/dL Normal 6.4-8.9 Albumin 4.6 g/dL Normal 3.2-5.2 Globulin 3.1 g/dL Normal 2-4 Albumin/Globulin Ratio 1.5 Normal 1-3 Total Bilirubin 0.70 mg/dL Normal 0.2-1.0 Alkaline Phosphatase 72 U/L Normal 34-104 Alt 65 U/L High 7-52 Ast 58 U/L High 13-39 Egfr Non- 91.2 >60 Egfr 110.4 >60 14 Laboratory test 01/11/2018 [facility] Alcohol 263 mg/dL High < [address] [place] [address] [phone] Laboratory test 10/31/2017 [facility] Magnesium 1.7 mg/dL Low 1.9-2.[address] [place] [address] [phone] TSH (Thyroid Stim Horm) 2.24 mcIU/mL Normal 0.34-5.60 Order 10/30/2017 [facility] In-House Holter Monitor <pending> CBC Auto Diff 10/27/2017 [facility] White Blood 9.9 10^3/uL Normal 3.5-10.[address] [place] [address] [phone] Red Blood Count 4.92 10^6/uL Normal 4.00-5.40 Hemoglobin 15.0 g/dL Normal 14.0-18.0 Hematocrit 43 % Normal 42-52 Mean Corpuscular Volume 88 fL Normal 80-94 Mean Corpuscular Hemoglobin 31 pg Normal 27-31 Mean Corpuscular HGB Conc 35 g/dL Normal 31-36 Red Cell Distribution Width 13 % Normal 10.5-15 Platelet Count 181 10^3/uL Normal 150-450 Mean Platelet Volume 9.2 um3 Normal 7.4-10.4 Abs Neutrophils 6.5 10^3/uL Normal 1.5-7.7 Abs Lymphocytes 2.3 10^3/uL Normal 1.0-4.8 Abs Monocytes 0.9 10^3/uL High 0-0.8 Abs Eosinophils 0 10^3/uL Normal 0-0.6 Abs Basophils 0.1 10^3/uL Normal 0-0.2 Abs Nucleated RBC 0 10^3/uL Granulocyte % 65.9 % Normal 38-83 Lymphocyte % 23.6 % Low 25-47 Monocyte % 9.5 % High 0-7 Eosinophil % 0.3 % Normal 0-6 Basophil % 0.7 % Normal 0-2 Nucleated Red Blood Cells % 0.1 Urinalysis Profile 10/27/2017 [facility] Urine Color Yellow [address] [place] [address] [phone] Urine Appearance Clear Urine Specific [place] 1.011 Normal 1.010-1.030 Urine pH 5.0 Normal 5-9 Urine Urobilinogen Negative Negative Urine Ketones Trace Abnormal Negative Urine Protein Negative Negative Urine Leukocytes Negative Negative Urine Blood 1+ Abnormal Negative Urine Nitrite Negative Negative Urine Bilirubin Negative Negative Urine Glucose Negative Negative Urine White Blood Cell Trace(0-5/hpf) Absent Urine Red Blood Cell Absent Absent Urine Bacteria 1+ Abnormal Absent Urine Squamous Epithelial Cell Present Abnormal Absent Comp Metabolic Panel 10/27/2017 [facility] Sodium 134 mmol/L Low 135-145 [address] [place] [address] [phone] Potassium 3.5 mmol/L Normal 3.5-5.0 Chloride 95 mmol/L Low 101-111 Co2 Carbon Dioxide 28 mmol/L Normal 22-32 Anion Gap 11 mmol/L Normal 2-11 Glucose 94 mg/dL Normal 70-100 Blood Urea Nitrogen 21 mg/dL Normal 6-24 Creatinine 1.03 mg/dL Normal 0.67-1.17 BUN/Creatinine Ratio 20.4 High 8-20 Calcium 9.3 mg/dL Normal 8.6-10.3 Total Protein 7.7 g/dL Normal 6.4-8.9 Albumin 4.4 g/dL Normal 3.2-5.2 Globulin 3.3 g/dL Normal 2-4 Albumin/Globulin Ratio 1.3 Normal 1-3 Total Bilirubin 1.30 mg/dL High 0.2-1.0 Alkaline Phosphatase 75 U/L Normal 34-104 Alt 25 U/L Normal 7-52 Ast 27 U/L Normal 13-39 Egfr Non- 77.1 >60 Egfr 93.3 >60 15 Laboratory test 10/27/2017 [facility] Magnesium 1.4 mg/dL Low 1.9-2.7 finding [address] [place] [address] [phone] Amylase 35 U/L Normal 29-103 Lipase 14 U/L Normal 11.0-82.0 C Reactive Protein 1.00 mg/L Normal <8.01 Urine Culture And 10/27/2017 [facility] Urine SEE RESULT [address] [place] [place] [address] [phone] Comp Metabolic 09/22/2017 [facility] Sodium 138 mmol/L Low 139 -[address] [place] [address] [phone] Potassium 4.4 mmol/L Normal 3.5-5.0 Chloride 104 mmol/L Normal 101-111 Co2 Carbon Dioxide 26 mmol/L Normal 22-32 Anion Gap 8 mmol/L Normal 2-11 Glucose 97 mg/dL Normal 70-100 Blood Urea Nitrogen 18 mg/dL Normal 6-24 Creatinine 1.02 mg/dL Normal 0.67-1.17 BUN/Creatinine Ratio 17.6 Normal 8-20 Calcium 8.9 mg/dL Normal 8.6-10.3 Total Protein 6.9 g/dL Normal 6.4-8.9 Albumin 4.2 g/dL Normal 3.2-5.2 Globulin 2.7 g/dL Normal 2-4 Albumin/Globulin Ratio 1.6 Normal 1-3 Total Bilirubin 0.80 mg/dL Normal 0.2-1.0 Alkaline Phosphatase 61 U/L Normal 34-104 Alt 20 U/L Normal 7-52 Ast 19 U/L Normal 13-39 Egfr Non- 78.0 >60 Egfr 100.2 >60 17 Lipid Profile 09/22/2017 [facility] Triglycerides 107 mg/dL 18 (Trig/Chol/HDL) [address] [place] [address] [phone] Cholesterol 196 mg/dL 19 HDL Cholesterol 40.3 mg/dL 20 LDL Cholesterol 134 mg/dL 21 1 Because ethnic data is not always readily available, this report includes an eGFR for both -Americans and non- Americans. The National Kidney Disease Education Program (NKDEP) does not endorse the use of the MDRD equation for patients that are not between the ages of 18 and 70, are , have extremes of body size, muscle mass, or nutritional status, or are non- or non-. According to the National Kidney Foundation, irrespective of diagnosis, the stage of the disease is based on the level of kidney function: Stage Description GFR(mL/min/1.73 m(2)) 1 Kidney damage with normal or decreased GFR 90 2 Kidney damage with mild decrease in GFR 60-89 3 Moderate decrease in GFR 30-59 4 Severe decrease in GFR 15-29 5 Kidney failure <15 (or dialysis) 2 The urine specimen was tested at the listed cutoffs: Drug class test level (ng/mL) Amphetamines 500 Barbiturates 200 Benzodiazepine metabolites 200 Cocaine metabolites 150 Cannabinoids 50 Opiates 300 Pcp 25 Specimen was received without chain of custody. Results should be used for medical purposes only. 3 SEE RESULT BELOW Name: SANDRA CHEEMA : [address]: Swati Valente MD Acct: [id number] Unit: [id number] AGE: 48 Location: ED Re05/14/18 SEX: M Status: DEP ER SPEC: [id number] MASHA: 05/14/[address] [facility] [address]: Swati Valente MD REQ: [id number] RECD: 05/14/18 STATUS: SOSA BRYANT DR: Chelsea Larios MD _ SOURCE: URINE SPDESC: ORDERED: Urine Culture Procedure Result Reported Site Urine Culture Final 05/15/18- 1617 ML No Growth (<1,000 CFU/mL) * ML - Main Lab . END OF REPORT DEPARTMENT OF PATHOLOGY, [address] [place] [address] Raleigh Sloan M.D. Director [facility] # [id number] 4 Troponin-I testing on Plasma Separator Tubes (PST) has a known false positive rate of 0.20-0.40%. All positive troponins reflex immediate secondary confirmatory testing. 5 Please note: The following may produce a false positive D Dimer test: - Rheumatoid factor greater than 60 IU/ml - Plasma hemoglobin greater than 0.05 gm/dl - Bilirubin greater than 50 mg/dl - Lipids greater than 1000 mg/dl - FDP greater than 20 ug/ml 6 Troponin-I testing on Plasma Separator Tubes (PST) has a known false positive rate of 0.20-0.40%. All positive troponins reflex immediate secondary confirmatory testing. 7 Because ethnic data is not always readily available, this report includes an eGFR for both -Americans and non- Americans. The National Kidney Disease Education Program (NKDEP) does not endorse the use of the MDRD equation for patients that are not between the ages of 18 and 70, are , have extremes of body size, muscle mass, or nutritional status, or are non- or non-. According to the National Kidney Foundation, irrespective of diagnosis, the stage of the disease is based on the level of kidney function: Stage Description GFR(mL/min/1.73 m(2)) 1 Kidney damage with normal or decreased GFR 90 2 Kidney damage with mild decrease in GFR 60-89 3 Moderate decrease in GFR 30-59 4 Severe decrease in GFR 15-29 5 Kidney failure <15 (or dialysis) 8 [facility] Severe Sepsis and Septic Shock Management Bundle Measure requires all lactic acids initially measuring >2.0 mmol/L be repeated. 9 Because ethnic data is not always readily available, this report includes an eGFR for both -Americans and non- Americans. The National Kidney Disease Education Program (NKDEP) does not endorse the use of the MDRD equation for patients that are not between the ages of 18 and 70, are , have extremes of body size, muscle mass, or nutritional status, or are non- or non-. According to the National Kidney Foundation, irrespective of diagnosis, the stage of the disease is based on the level of kidney function: Stage Description GFR(mL/min/1.73 m(2)) 1 Kidney damage with normal or decreased GFR 90 2 Kidney damage with mild decrease in GFR 60-89 3 Moderate decrease in GFR 30-59 4 Severe decrease in GFR 15-29 5 Kidney failure <15 (or dialysis) 10 Desirable: <150 Borderline High: 150-199 High: 200-499 Very High: >500 11 Desirable: <200 Borderline High: 200-239 High: >239 12 Low: <40 Desirable: 40-60 High: >60 13 Desirable: <100 Near Optimal: 100-129 Borderline High: 130-159 High: 160-189 Very High: >189 14 Because ethnic data is not always readily available, this report includes an eGFR for both -Americans and non- Americans. The National Kidney Disease Education Program (NKDEP) does not endorse the use of the MDRD equation for patients that are not between the ages of 18 and 70, are , have extremes of body size, muscle mass, or nutritional status, or are non- or non-. According to the National Kidney Foundation, irrespective of diagnosis, the stage of the disease is based on the level of kidney function: Stage Description GFR(mL/min/1.73 m(2)) 1 Kidney damage with normal or decreased GFR 90 2 Kidney damage with mild decrease in GFR 60-89 3 Moderate decrease in GFR 30-59 4 Severe decrease in GFR 15-29 5 Kidney failure <15 (or dialysis) 15 Because ethnic data is not always readily available, this report includes an eGFR for both -Americans and non- Americans. The National Kidney Disease Education Program (NKDEP) does not endorse the use of the MDRD equation for patients that are not between the ages of 18 and 70, are , have extremes of body size, muscle mass, or nutritional status, or are non- or non-. According to the National Kidney Foundation, irrespective of diagnosis, the stage of the disease is based on the level of kidney function: Stage Description GFR(mL/min/1.73 m(2)) 1 Kidney damage with normal or decreased GFR 90 2 Kidney damage with mild decrease in GFR 60-89 3 Moderate decrease in GFR 30-59 4 Severe decrease in GFR 15-29 5 Kidney failure <15 (or dialysis) 16 SEE RESULT BELOW Name: SANDRA CHEEMA : [address]: Linwood Damian MD Acct: [id number] Unit: [id number] AGE: 47 Location: ED Re10/27/17 SEX: M Status: DEP ER SPEC: [id number] MASHA: 10/27/[address] [facility] [address]: Linwood Damian MD REQ: [id number] RECD: 10/27/17 STATUS: SOSA BRYANT DR: Camacho Vazquez BUNG DROPPER _ SOURCE: URINE SPDESC: ORDERED: Urine Culture Procedure Result Reported Site Urine Culture Final 10/29/17- 0858 ML No Growth (<1,000 CFU/mL) * ML - Main Lab . END OF REPORT DEPARTMENT OF PATHOLOGY, [address] [place] [address] Raleigh Sloan M.D. Director [facility] # [id number] 17 Because ethnic data is not always readily available, this report includes an eGFR for both -Americans and non- Americans. The National Kidney Disease Education Program (NKDEP) does not endorse the use of the MDRD equation for patients that are not between the ages of 18 and 70, are , have extremes of body size, muscle mass, or nutritional status, or are non- or non-. According to the National Kidney Foundation, irrespective of diagnosis, the stage of the disease is based on the level of kidney function: Stage Description GFR(mL/min/1.73 m(2)) 1 Kidney damage with normal or decreased GFR 90 2 Kidney damage with mild decrease in GFR 60-89 3 Moderate decrease in GFR 30-59 4 Severe decrease in GFR 15-29 5 Kidney failure <15 (or dialysis) 18 Desirable: <150 Borderline High: 150-199 High: 200-499 Very High: >500 19 Desirable: <200 Borderline High: 200-239 High: >239 20 Low: <40 Desirable: 40-60 High: >60 21 Desirable: <100 Near Optimal: 100-129 Borderline High: 130-159 High: 160-189 Very High: >189 Procedures Date Code Description Status 01/30/2018 15823 Treadmill Interp/Report Only Completed 01/30/2018 47577 Stress Test Supervsn W/Out I/R Completed 11/21/2017 88913 Holter Monitor Review (24 hr)dr review & interp only Completed 11/20/2017 08641 ECG Monitor/Recording W/Visual Superimposition Scanning Completed 11/17/2017 54867 EKG Tracing & Interpretation Completed 11/03/2017 03413 ECHO Transthoracic, Real-Time 2D With Doppler And Color Completed Flow 11/03/2017 15509 ECHO Transthoracic, Real-Time 2D With Doppler And Color Completed Flow 10/30/2017 79885 ECG Monitor/Recording W/Visual Superimposition Scanning Completed 10/30/2017 63389 EKG Tracing & Interpretation Completed Encounters Type Date Location Provider Dx Diagnosis Office Visit 10/28/2018 [facility] Ann James, R06.83 Snoring 8:00a [facility] Office Visit 09/18/2018 [facility] Xenia Gee MD R10.84 Generalized 4:00p Medicine - [facility] abdominal pain R03.0 Elevated blood-pressure reading, w/o diagnosis of htn Office Visit 07/02/2018 7:40a [facility] Chelsea F41.9 Anxiety disorder, Medicine - Cotton, M.D. unspecified [facility] R06.83 Snoring Office 04/06/2018 DoNotUse [facility] Chelsea J01.90 Acute Visit 3:40p Medicine-Agata Larios M.D. sinusitis, unspecified F41.9 Anxiety disorder, unspecified Office Visit 12/18/2017 8:40a [facility] Chelsea I48.0 Paroxysmal atrial Medicine Larry Larios M.D. fibrillation [facility] R12 Heartburn Office Visit 11/17/2017 9:40a [facility] Jamarcus Mcguire I48.0 Paroxysmal atrial Renae Paige fibrillation E78.00 Pure hypercholesterolemia, unspecified I25.10 Athscl heart disease of [place] coronary artery w/o ang pctrs R06.83 Snoring Office Visit 10/30/2017 8:40a [facility] Chelsea I48.0 Paroxysmal atrial Medicine Larry Larios M.D. fibrillation [facility] K21.9 Gastro-esophageal reflux disease without esophagitis R00.1 Bradycardia, unspecified Office Visit 01/24/2017 2:30p Orthopedic Joeaurea Campbell, M76.61 [facility], right C.M.A. leg M76.62 Achilles tendinitis, left leg Office Visit 01/23/2017 10:40a [facility] Camacho George, I48.0 [facility] fibrillation G47.00 Insomnia, unspecified M76.60 Achilles tendinitis, unspecified leg Z23 Encounter for immunization Plan of Treatment Future Appointment(s):02/05/2019 8:30 am - Brittney Boyd NP at [facility]12/02/2018 11:00 am - Jamarcus Paige M.D. at [facility]01/28/2019 8:00 am - Chelsea Larios M.D. at [facility] Internal Medicine - [facility]11/26/2018 - Brittney Boyd NPG47.33 Obstructive sleep apnea (adult) (pediatric)Follow up:2 monthsRecommendations:You are being set up with CPAP for your sleep apnea through [facility] . They will call you to set up an appointment to get fit for a mask and cigar packer and picker your machine. If you have difficulty with your equipment, or need to replace your mask or hoses, please contact your homecare agency. Your sleep apnea is worse on your back. Until you get set up with CPAP, please avoid your back for sleep. You may use a special pillow like a Slumber Bump to help you avoid your back. You can also try wearing a gabriel pack with tennis balls around your back or sew a sock to the back of a t-shirt and place a tennis ball in that to discourage sleeping on your back. If you have any further questions, please call the [facility] at [phone] If you have any sleepiness while driving you MUST avoid operating a vehicle or machinery.G47.00 Insomnia, unspecified
--- OUTSIDE RECORDS SUMMARY | 2019-01-11 09:17 | XMS REPORT | Continuity of Care Document ---
:1970 External Reference #:[id number] Author Name Jamarcus Paige M.D. (transmitted by agent of provider Blanca Mitchell ) Address [address] [place] [address] Care Team Providers Name Role Phone Chelsea Larios MD - Internal Care Team Information Behavioral Health Tech [phone] Medicine Problems Active Problems Provider Date Paroxysmal atrial fibrillation Camacho Vazquez NP Onset: 01/28/2017 Hyperlipidemia Camacho Vazquez NP Onset: 01/28/2017 Sleep apnea Chelsea Larios M.D. Onset: 11/29/2018 Social History Type Date Description Comments Sex Unknown ETOH Use Denies alcohol use Had problem with alcohol, stopped drinking in 2015.In-patient Detox in 2015. Relapse in 2017. CARS in 2019 Tobacco Use Start: Unknown Patient has never smoked Recreational Drug Use Never Used Drugs Smoking Status Reviewed: 12/02/18 Patient has never smoked Exercise Type/Frequency Exercises regularly Allergies, Adverse Reactions, Alerts Active Allergies Reaction Severity Comments Date Penicillin 01/23/2017 Medications Active Medications SIG Qnty Indications Ordering Provider Date Zetia 1 by mouth every 90tabs Jamarcus Mcguire 02/02/2018 10mg Tablets day Renae Paige Metoprolol Succinate take 1 tablet 90tabs I48.0 Chelsea Larios 2017 ER daily Renae 25mg Tablets ER 24HR Crestor take 1 tablet 90tabs Jamarcus Mcguire 06/09/2017 40mg Tablets daily Renae Paige Ambien 1 tab by mouth 30tabs Chelsea Larios, 02/21/2017 10mg Tablets daily as needed M.DDavid Aspirin 1 by mouth every Unknown 81mg Tablets DR day Effexor XR 1 by mouth every Unknown 75mg Caps ER day 24HR Immunizations CPT Code Status Date Vaccine Lot # [id number] Given 01/23/2017 Influenza Virus Vaccine, Quadrivalent, Split, [id number] Preservative Free Vital Signs Date Vital Result Comment 12/02/2018 10:44am Height 71 inches 5'11" Weight 261.00 lb with shoes Heart Rate 68 /min left radial BP Systolic Sitting 122 mmHg ule, large cuff BP Diastolic Sitting 82 mmHg ule, large cuff BP Systolic Standing 118 mmHg ule, large cuff BP Diastolic Standing 78 mmHg ule, large cuff BMI (Body Mass Index) 36.4 kg/m2 Ejection Fraction 55-60% echo 11/03/17 11/26/2018 8:58am Height 71 inches 5'11" Weight 266.25 lb Heart Rate 81 /min BP Systolic Sitting 118 mmHg BP Diastolic Sitting 80 mmHg Respiratory Rate 16 /min BMI (Body Mass Index) 37.1 kg/m2 Results Test Date Facility Test Result H/L Range Note CBC Auto 09/18/2018 [facility] White Blood 4.9 10^3/uL Normal 3.5-10.[address] [place] [address] [phone] Red Blood Count 4.58 10^6/uL Normal 4.18-5.48 [...] Blood Cells % 0.7 Comp Metabolic 09/18/2018 [facility] Sodium 139 mmol/L Normal 135-145 Panel [address] [place] [address] [phone] Potassium 3.6 mmol/L Normal 3.5-5.0 Chloride 107 [...] 75.9 >60 Egfr 91.8 >60 1 Laboratory test 09/18/2018 [facility] Lipase 43 U/L Normal 11.0-82.0 finding [address] [place] [address] [phone] 1 Because ethnic data is not always [...] 15-29 5 Kidney failure <15 (or dialysis) Procedures Date Code Description Status 12/02/2018 41224 EKG Tracing & Interpretation Completed Medical Devices Description No Information Available Encounters Type Date Location Provider Dx Diagnosis Office Visit 12/02/2018 [facility] Jamarcus Mcguire G47.33 Obstructive sleep 11:00a Renae Paige apnea (adult) (pediatric) F41.9 Anxiety disorder, unspecified I48.0 Paroxysmal atrial fibrillation E78.00 Pure hypercholesterolemia, unspecified I25.10 Athscl heart disease of [place] coronary artery w/o ang pctrs Office Visit 11/26/2018 Pulmonology And Brittney G47.33 Obstructive sleep 9:00a [facility] Boyd apnea (adult) [facility] (pediatric) G47.00 Insomnia, unspecified Office Visit 10/28/2018 8:00a Pulmonology And Ann R06.83 Snoring [facility] Office Visit 09/18/2018 4:00p [facility] Internal Xenia Gerard, R10.84 Generalized Medicine - [facility] abdominal pain R03.0 Elevated blood-pressure reading, w/o diagnosis of htn Office Visit 07/02/2018 7:40a [facility] Chelsea F41.9 Anxiety disorder, Boo Larios M.D. unspecified [facility] R06.83 Snoring Assessments Date Code Description Provider 12/02/2018 G47.33 Obstructive sleep apnea (adult) Jamarcus Paige M.D. (pediatric) 12/02/2018 F41.9 Anxiety disorder, unspecified Jamarcus Paige M.D. 12/02/2018 I48.0 Paroxysmal atrial fibrillation Jamarcus Paige M.D. 12/02/2018 E78.00 Pure hypercholesterolemia, unspecified Jamarcus Paige M.D. 12/02/2018 I25.10 Coronary atherosclerosis Jamarcus Paige M.D. 11/26/2018 G47.33 Obstructive sleep apnea (adult) Brittney Boyd NP (pediatric) 11/26/2018 G47.00 Insomnia, unspecified Brittney Boyd NP 10/28/2018 R06.83 Snoring Ann Ramirez MD 09/18/2018 R10.84 Generalized abdominal pain Xenia Gerard, MD 09/18/2018 R03.0 Elevated blood-pressure reading, without Xenia Gee MD diagnosis of hypert 07/02/2018 F41.9 Anxiety disorder, unspecified Chelsea Larios M.D. 07/02/2018 R06.83 Snoring Chelsea Larios M.D. Plan of Treatment Future Appointment(s):02/05/2019 8:30 am - Brittney Boyd NP at [facility]01/28/2019 8:00 am - Chelsea Larios M.D. at [facility] Internal Medicine - [facility]12/02/2018 - Jamarcus Paige M.D.G47.33 Obstructive sleep apnea (adult) (pediatric)F41.9 Anxiety disorder, fhvawnajrdcF88.0 Paroxysmal atrial tjzvcuzjsqilQ06.00 Pure hypercholesterolemia , unspecifiedFollow up:ov 8 mI25.10 Coronary atherosclerosis Functional Status Description No Information Available Mental Status Description No Information Available Referrals Refer to Reason for Referral Status Appt Date [facility] Sent 09/18/2018 [address] [place] [id number] [phone]
--- OUTSIDE RECORDS SUMMARY | 2019-01-11 09:17 | XMS REPORT | Continuity of Care Document ---
:1970 External Reference #:[id number] Author Name Octaviano Vasquez Care Team Providers Name Role Phone Chelsea Larios MD - Internal Care Team Information Assistant Surveyor Medicine Problems Active Problems Provider Date Paroxysmal [...] 02/02/2018 10mg Tablets day Renae Paige Magnesium [place] Chelsea Larios, 12/18/2017 Renae Metoprolol Succinate take 1 tablet 90tabs I48.0 Chelsea Larios, 2017 ER daily M.D. 25mg Tablets ER 24HR Crestor take 1 tablet 90tabs Jamarcus FDavid 06/09/2017 40mg Tablets daily Renae Paige Ambien 1 tab by mouth 30tabs Chelsea Larios, 02/21/2017 10mg Tablets daily as needed M.D. Aspirin 1 by mouth every Unknown 81mg Tablets DR day Effexor XR 1 by mouth every Unknown 75mg Caps ER day 24HR Immunizations CPT Code Status Date Vaccine Lot # [id number] Given 01/23/2017 Influenza Virus Vaccine, Quadrivalent, Split, [...] 36.3 kg/m2 Neck Circumference in inches 17.25 Results Test Date Facility Test Result H/L Range Note CBC Auto 09/18/2018 [facility] White Blood 4.9 10^3/uL Normal 3.5-10.[address] [place] [address] [phone] Red Blood Count 4.58 10^6/uL Normal 4.18-5.48 [...] Blood Cells % 0.7 Comp Metabolic 09/18/2018 [facility] Sodium 139 mmol/L Normal 135-[address] [place], [place] [address] [phone] Potassium 3.6 mmol/L Normal 3.5-5.0 Chloride 107 [...] Egfr 91.8 >60 1 Laboratory test 09/18/2018 [facility] Lipase 43 U/L Normal 11.0-82.0 finding [address] [place] [address] [phone] 1 Because ethnic data is not always [...] 5 Kidney failure <15 (or dialysis) Procedures Description No Information Available Medical Devices Description No Information Available Encounters Type Date Location Provider Dx Diagnosis Office Visit 10/28/2018 Pulmonology And Ann Ramirez, R06.83 Snoring 8:00a [facility] Office Visit 09/18/[address] [facility] Internal Xenia Gee MD R10.84 Generalized 4:[facility]p [facility] R03.0 Elevated blood-pressure reading, w/o diagnosis of htn Office Visit 07/02/2018 7:40a [facility] Internal Chelsea F41.9 Anxiety disorder, Medicine - Renae Larios unspecified [facility] R06.83 Snoring Assessments Date Code Description Provider 11/26/2018 G47.33 Obstructive sleep apnea (adult) (pediatric) Brittney Boyd NP 11/26/2018 G47.00 Insomnia, unspecified Brittney Boyd NP 10/28/2018 R06.83 Snoring Ann Ramirez MD 09/18/2018 R10.84 Generalized abdominal pain Xenia Gee MD 09/18/2018 R03.0 Elevated blood-pressure reading, without Xenia Gee MD diagnosis of hypert 07/02/2018 F41.9 Anxiety disorder, unspecified Chelsea Larios M.D. 07/02/2018 R06.83 Snoring Chelsea Larios M.D. Plan of Treatment Future Appointment(s):02/05/2019 8:30 am - Brittney Boyd NP at [facility]01/28/2019 8:00 am - Chelsea Larios M.D. at [facility] - Brittney Boyd NPG47.33 Obstructive sleep apnea (adult) (pediatric)Follow up:2 monthsRecommendations: You are being set up with CPAP for your sleep apnea through [facility] . They will call you to set up an appointment to get fit for a mask and continuous pickling line pickler your machine. If you have difficulty with your equipment, or need to replace your mask or hoses, please contact your homecare agency. Your sleep apnea is worse on your back. Until you get set up with CPAP , please avoid your back for sleep. You [...] please call the Sleep Disorder Center at [phone] If you have any sleepiness while driving you MUST avoid operating a vehicle or machinery.G47.00 Insomnia, unspecified Functional Status Description No Information Available Mental Status Description No Information Available Referrals Refer to Reason for Referral Status Appt Date [facility] Sent 09/18/2018 [address] [place] [id number] [phone]
[2019-01-11] MEDS ORDERED: Ondansetron INJ* 2 MG/ML VIAL IV ONE (09:29)
[2019-01-11 09:38] LABS: ABS Lymphocytes 1.2 10^3/ul (1.0-4.8); ABS Monocytes 0.5 10^3/ul (0-0.8); Eosinophil % 0.5 %; Hematocrit 44 % (42-52); Lymphocyte % 21.5 %; Mean Corpuscular HGB Conc 35 g/dL (31-36); Mean Corpuscular Hemoglobin 31 pg (27-31); Mean Corpuscular Volume 89 fL (80-94); Mean Platelet Volume 8.2 fL (7.4-10.4); Platelet Count 159 10^3/uL (150-450); Red Blood Count 4.89 10^6 /uL (4.18-5.48); Red Cell Distribution Width 13 % (10-15); White Blood Count 5.8 10^3/uL (3.5-10.8)
[2019-01-11] MEDS ORDERED: Zolpidem TAB* 10 MG PO PRN (09:52)
[2019-01-11] MEDS ORDERED: Lorazepam PYXIS KEY PRN (09:54)
[2019-01-11] MEDS ORDERED: LORazepam INJ* 2 MG/ML 1 ML VIAL IV PUSH ONE (09:54)
[2019-01-11 09:55] LABS: Albumin 4.2 g/dL (3.2-5.2); Calcium 8.6 mg/dL (8.6-10.3); Magnesium 1.7 mg/dL (1.9-2.7); Potassium 3.5 mmol/L (3.5-5.0); Total Bilirubin 0.6 mg/dL (0.2-1.0)
[2019-01-11 10:00] LABS: INR 1.03 (0.82-1.09)
[2019-01-11] MEDS ORDERED: Atorvastatin* 80 MG TAB PO SCH (10:00)
[2019-01-11] MEDS ORDERED: Aspirin EC TAB* 81 MG TAB.EC PO SCH (10:00)
[2019-01-11] MEDS ORDERED: Venlafaxine EXT RELEASE CAP* 75 MG PO SCH (10:00)
[2019-01-11] MEDS ORDERED: Ezetimibe TAB* 10 MG PO SCH (10:00)
[2019-01-11] MEDS ORDERED: Metoprolol Succinate XL TAB* 25 MG PO SCH (10:00)
[2019-01-11 10:01] LABS: Albumin/Globulin Ratio 1.4 (1-3); BUN/Creatinine Ratio 21.3 (8-20); EGFR African American 109.9 (>60); EGFR Non-African American 90.9 (>60); Globulin 3.1 g/dL (2-4); Total Protein 7.3 g/dL (6.4-8.9)
[2019-01-11] MEDS ORDERED: Lorazepam PYXIS KEY ONE (10:08)
--- NOTE | 2019-01-11 10:10 | ED ---
Palpitations / Dysrhythmia - HPI Summary HPI Summary: Pt is a 48 y/o M presenting to the ED with a chief complaint of palpitations initially onset last night. He states he is withdrawing from a 1 week binge of alcohol, and his last drink was this morning at 0500. He reports feeling shaky, palpitations described as irregular, dizziness, weakness, lightheadedness, and anxiety. He denies CP, SOB, SI, fever, chills, erythema of eyes, sore throat, cough, abdominal pain, N/V, dysuria, hematuria, myalgia, edema, or rash. He notes hx of alcoholism, and has been hospitalized before for it. His atrial fibrillation also worsens with drinking. He has not had seizures with withdrawal. He did not take his medications this morning. - History of Current Complaint Chief Complaint: EDDysrhythmPalp Time Seen by Provider: 01/11/19 09:24 Hx Obtained From: Patient Onset/Duration: Gradual Onset, Lasting Hours, Still Present Timing: Constant Severity Initially: Moderate Severity Currently: Moderate Character: Irregular Aggravating: Other - alcohol use Alleviating: Nothing Associated Signs & Symptoms: Lightheadedness, Dizzy - Allergy/Home Medications Allergies/Adverse Reactions: Allergies Allergy/AdvReac Type Severity Reaction Status Date / Time Penicillins Allergy Unknown Verified 01/11/19 09:12 Reaction Details Home Medications: Home Medications Venlafaxine ER (NF) 75 mg PO DAILY 01/11/19 [History Confirmed 01/11/19] PMH/Surg Hx/FS Hx/Imm Hx Previously Healthy: Yes Endocrine/Hematology History: Denies: Hx Diabetes Cardiovascular History: Reports: Hx Atrial Fibrillation, Hx Hypercholesterolemia , Hx Hypertension Denies: Hx Angina Respiratory History: Denies: Hx Asthma Neurological History: Reports: Other Neuro Impairments/Disorders - hx alcohol withdrawal Psychiatric History: Reports: Hx Anxiety, Hx Substance Abuse - ETOH - Surgical History Surgery Procedure, Year, and Place: ANTERIOR CERVICAL SURGERY WITH PLATE Infectious Disease History: No Infectious Disease History: Denies: Traveled Outside the [place] in Last 30 Days - Family History Known Family History: Positive: Cardiac Disease, Diabetes, Other - BREAST AND LUNG CANCER. A-FIB. - Social History Alcohol Use: hx alcohol abuse, binge drinking last PM, started drinking again fall 2017, after 2.5 yrs abstinence Alcohol Amount: 1 pint vodka Hx Substance Use: No Substance Use Type: Reports: None Hx Tobacco Use: No Smoking Status (MU): Never Smoked Tobacco Review of Systems Positive: Other - shakiness. Negative: Fever, Chills Negative: Erythema Negative: Sore Throat Positive: Palpitations. Negative: Chest Pain Negative: Shortness Of Breath, Cough Negative: Abdominal Pain, Vomiting, Nausea Negative: dysuria, hematuria Negative: Myalgia, Edema Negative: Rash Neurological: Other - dizziness, lightheadedness Positive: Weakness Positive: Anxious. Negative: Other - SI All Other Systems Reviewed And Are Negative: Yes Physical Exam - Summary Physical Exam Summary: Constitutional: Well-developed, Well-nourished, Alert. (-) Distressed Skin: Warm, Dry HENT: Normocephalic; Atraumatic Eyes: Conjunctiva normal Neck: Musculoskeletal ROM normal neck. (-) JVD, (-) Stridor, (-) Tracheal deviation Cardio: Rhythm regular, rate normal, Heart sounds normal; Intact distal pulses; The pedal pulses are 2+ and symmetric. Radial pulses are 2+ and symmetric. (-) Murmur Pulmonary/Chest wall: Effort normal. (-) Respiratory distress, (-) Wheezes, (-) Rales Abd: Soft, (-) tenderness, (-) Distension, (-) Guarding, (-) Rebound Musculoskeletal: (-) Edema Lymph: (-) Cervical adenopathy Neuro: Alert, Oriented x3 Psych: Mood and affect Normal Triage Information Reviewed: Yes Vital Signs On Initial Exam: Initial Vitals Temp Pulse Resp BP Pulse Ox 98.3 F 91 18 175/99 95 01/11/19 09:10 01/11/19 09:10 01/11/19 09:10 01/11/19 09:10 01/11/19 09:10 Vital Signs Reviewed: Yes Diagnostics - Vital Signs Vital Signs Temp Pulse Resp BP Pulse Ox 01/11/19 09:10 98.3 F 91 18 175/99 95 - Laboratory Lab Results: Lab Results 01/11/19 01/11/19 01/11/19 Range/Units 09:24 09:24 09:24 WBC 5.8 (3.5-10.8) 10^3/uL RBC 4.89 (4.18-5.48) 10^6 /uL Hgb 15.0 (14.0-18.0) g/dL Hct 44 (42-52) % MCV 89 (80-94) fL MCH 31 (27-31) pg MCHC 35 (31-36) g/dL RDW 13 (10-15) % Plt Count 159 (150-450) 10^3/uL MPV 8.2 (7.4-10.4) fL Neut % (Auto) 68.9 % Lymph % (Auto) 21.5 % [place] % (Auto) 9.0 % Eos % (Auto) 0.5 % Baso % (Auto) 0.1 % Absolute Neuts (auto) 4.0 (1.5-7.7) 10^3/ul Absolute Lymphs (auto) 1.2 (1.0-4.8) 10^3/ul Absolute Monos (auto) 0.5 (0-0.8) 10^3/ul Absolute Eos (auto) 0.0 (0-0.6) 10^3/ul Absolute Basos (auto) 0.0 (0-0.2) 10^3/ul Absolute Nucleated RBC 0.0 10^3/ul Nucleated RBC % 0.0 INR (Anticoag Therapy) 1.03 (0.82-1.09) Sodium 139 (135-145) mmol/L Potassium 3.5 (3.5-5.0) mmol/L Chloride 104 (101-111) mmol/L Carbon Dioxide 25 (22-32) mmol/L Anion Gap 10 (2-11) mmol/L BUN 19 (6-24) mg/dL Creatinine 0.89 (0.67-1.17) mg/dL Est GFR ( Amer) 109.9 (>60) Est GFR (Non-Af Amer) 90.9 (>60) BUN/Creatinine Ratio 21.3 H (8-20) Glucose 104 H (70-100) mg/dL Calcium 8.6 (8.6-10.3) mg/dL Magnesium 1.7 L (1.9-2.7) mg/dL Total Bilirubin 0.60 (0.2-1.0) mg/dL AST 75 H (13-39) U/L ALT 61 H (7-52) U/L Alkaline Phosphatase 68 (34-104) U/L Troponin I 0.00 (<0.04) ng/mL Total Protein 7.3 (6.4-8.9) g/dL Albumin 4.2 (3.2-5.2) g/dL Globulin 3.1 (2-4) g/dL Albumin/Globulin Ratio 1.4 (1-3) TSH Pending Serum Alcohol Pending Result Diagrams: 01/11/19 09:24 01/11/19 09:24 Lab Statement: Any lab studies that have been ordered have been reviewed, and results considered in the medical decision making process. - EKG 908 Cardiac Rate: NL - 88bpm EKG Rhythm: Sinus Rhythm ST Segment: Normal Ectopy: None Summary of EKG Findings: EKG at 09 shows NSR at 88bpm with no STEMI. Course/Dx - Course Course Of Treatment: Pt is a 48 y/o M presenting to the ED with a chief complaint of palpitations initially onset last night. He states he is withdrawing from a 1 week binge of alcohol, and his last drink was this morning at 0500. He reports feeling shaky, palpitations described as irregular, dizziness, weakness, lightheadedness, and anxiety. He denies CP, SOB, SI, fever , chills, erythema of eyes, sore throat, cough, abdominal pain, N/V, dysuria, hematuria, myalgia, edema, or rash. Pt's physical exam is nml. EKG at 0909 shows NSR at 88bpm with no STEMI. Pts lab results show BUN/Creatinine ratio of 21.3, AST of 75, and ALT of 61. Serum alcohol is 176. Pt will be d/c'ed with dx of alcohol-induced mood disorder. He is stable and agreeable with this plan. - Diagnoses Provider Diagnoses: Alcohol-induced mood disorder Discharge ED - Sign-Out/Discharge Documenting (check all that apply): Patient Departure Patient Received Moderate/Deep Sedation with Procedure: No - Discharge Plan Condition: Stable Disposition: HOME Prescriptions: chlordiazePOXIDE CAP* [Librium CAP*] 25 mg PO Q8H #10 cap MDD 3 Referrals: Chelsea Larios MD [Primary Care Provider] - [facility] [Outside] Additional Instructions: Please follow up with [facility] within the next 3-5 days. Return to the emergency department with any new or worsening symptoms. - Attestation Statements Document Initiated by Scribe: Yes Documenting Scribe: Natalie Nuñez Provider For Whom Scribe is Documenting (Include Credential): Viral Dueñas MD. Scribe Attestation: Natalie Urena, scribed for Viral Dueñas MD. on 01/11/19 at 1350. Status of Scribe Document: Ready
[2019-01-11 10:49] LABS: TSH (Thyroid Stimulating Horm) 3.02 mcIU/mL (0.34-5.60)
[2019-01-11 14:35] VITALS: BP 146/92
== END 2019-01-11 13:55 | disposition home or self-care (01) ==
LOC: ED 09:04
DX: F10.94 Alcohol use, unspecified with alcohol-induced mood disorder (principal); I48.91 Unspecified atrial fibrillation; I10 Essential (primary) hypertension; E78.00 Pure hypercholesterolemia, unspecified; F41.9 Anxiety disorder, unspecified; Z79.82 Long term (current) use of aspirin; Z79.899 Other long term (current) drug therapy; Z88.0 Allergy status to penicillin
CPT/HCPCS: 36415; 80053; 80320; 83735; 84443; 84484; 85025; 85610; 93005; 96374; 96375; 99285; A9270-GY; G0480; J2060; J2405